=== PATIENT | male | born 1950 | race Caucasian/White ===

== ENCOUNTER 2022-02-28 15:57 | Emergency (ER) | payer MEDICARE ==
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
--- NOTE | 2022-02-28 16:49 | XRAY ---
Indication: Posterior head injury following fall. Dizziness. Multiple contiguous axial images obtained through the head without contrast. Comparison: None Age-appropriate global atrophy and moderate periventricular degenerative micro-ischemia bilaterally. No acute intracranial hemorrhage, abnormal extra-axial fluid collection, or mass effect. Fourth ventricle is midline without hydrocephalus. Visualized paranasal sinuses and mastoid air cells are clear. Impression: Nonacute senile brain.
[2022-02-28 17:06] VITALS: BP 166/79; PULSE 77; O2SAT 96
== END 2022-02-28 17:06 | disposition home or self-care (01) ==
LOC: ED 15:57
DX: R42 Dizziness and giddiness (principal); G44.319 Acute post-traumatic headache, not intractable; F07.81 Postconcussional syndrome; V68.4XXA Person boarding or alighting a heavy transport vehicle injured in noncollision transport accident, initial encounter; E11.9 Type 2 diabetes mellitus without complications; I10 Essential (primary) hypertension; E78.5 Hyperlipidemia, unspecified; Z79.84 Long term (current) use of oral hypoglycemic drugs; Z79.899 Other long term (current) drug therapy
CPT/HCPCS: 70450; 99283